=== PATIENT | male | born 1970 | race Caucasian/White ===

== ENCOUNTER → 2019-04-05 10:32 | Outpatient (BNVA) | payer MEDICARE, MEDICAID, SELFPAY | PROVIDERS: Family Provider Nurse Practitioner Family; PCP Nurse Practitioner Family; Referring Provider Internal Medicine Nephrology; Visit Provider Internal Medicine Nephrology | DX: N18.2 Chronic kidney disease, stage 2 (mild) (principal) | CPT/HCPCS: 80069; 82044 ==

== ENCOUNTER → 2019-05-19 15:00 | Outpatient (BNVA) | payer MEDICARE, MEDICAID, SELFPAY | PROVIDERS: Visit Provider Psychiatry & Neurology Psychiatry | DX: F20.89 Other schizophrenia (principal); F17.200 Nicotine dependence, unspecified, uncomplicated | CPT/HCPCS: 99213 ==

== ENCOUNTER → 2019-07-27 08:08 | Outpatient (BNVA) | payer MEDICARE, MEDICAID, SELFPAY | PROVIDERS: Visit Provider Psychiatry & Neurology Psychiatry | DX: F20.89 Other schizophrenia (principal); F17.200 Nicotine dependence, unspecified, uncomplicated | CPT/HCPCS: 99214 ==

== ENCOUNTER → 2019-08-17 08:16 | Outpatient (BNVA) | payer MEDICARE, MEDICAID, SELFPAY | PROVIDERS: Visit Provider Psychiatry & Neurology Psychiatry | DX: F20.89 Other schizophrenia (principal); F17.200 Nicotine dependence, unspecified, uncomplicated | CPT/HCPCS: 99213 ==

== ENCOUNTER → 2019-08-29 15:24 | Outpatient (BNVA) | payer MEDICARE, MEDICAID, SELFPAY | PROVIDERS: Visit Provider Family Medicine | DX: M25.512 Pain in left shoulder (principal) | CPT/HCPCS: 73030 ==

== ENCOUNTER → 2019-10-05 07:41 | Outpatient (BNVA) | payer MEDICARE, MEDICAID, SELFPAY | PROVIDERS: Visit Provider Psychiatry & Neurology Psychiatry | DX: F20.89 Other schizophrenia (principal); F17.200 Nicotine dependence, unspecified, uncomplicated | CPT/HCPCS: 99213 ==

== ENCOUNTER 2019-12-21 06:00 | Outpatient (RCR) | payer MEDICARE, MEDICAID, SELFPAY | END 2020-01-20 23:59 | disposition home or self-care (01) | LOC: TPT 06:00 | PROVIDERS: Referring Provider Orthopaedic Surgery; Visit Provider Orthopaedic Surgery | DX: M75.02 Adhesive capsulitis of left shoulder (principal) | CPT/HCPCS: 97110; 97140; 97161; G0283 ==

== ENCOUNTER 2020-01-19 23:07 | Inpatient (IN) | payer MEDICARE, MEDICAID, SELFPAY ==
[2020-01-19 23:29] VITALS: BP 91/58; PULSE 96; RESP 22; TEMP 36.4; O2SAT 98; BMI 53.3
--- NOTE | 2020-01-19 23:42 | XRR_ITS ---
PROCEDURE INFORMATION: Exam: XR Chest, 1 View Exam date and time: 01/20/2020 12:30 AM Age: 49 years old Clinical indication: Patient HX: Chills, fever, n/v; Additional info: Cough TECHNIQUE: Imaging protocol: XR of the chest Views: 1 view. COMPARISON: CR Chest 1 [place] [id number] 02/10/2013 2:26 PM FINDINGS: Lungs: There are some increased interstitial opacities present in the lower hemithoraces bilaterally, findings that raise some suspicion for bilateral basilar interstitial pneumonitis. Pleural space: Unremarkable. No pleural effusion. No pneumothorax. Heart/Mediastinum: Unremarkable. No cardiomegaly. Bones/joints: Unremarkable. XR/XR chest 1V portable [id number] IMPRESSION: Increased interstitial markings in the lower hemithoraces bilaterally raise suspicion for bilateral basilar interstitial pneumonitis.
--- NOTE | 2020-01-19 23:43 | ECG_ITS ---
[facility] Test Date: 2020-01-19 Pat Name: Rodríguez Toscano Department: Room: 270 Gender: Male Driver Medic: : 1970 Requested By: Terrie Hopson Order Number: [id number] Reading MD: HAYDEE RICO Measurements Intervals Pilot Rate: 92 P: 51 DC: 152 QRS: 215 QRSD: 165 T: 23 QT: 401 QTc: 496 Interpretive Statements SINUS RHYTHM RIGHT AXIS DEVIATION [QRS AXIS > 100] RIGHT BUNDLE BRANCH BLOCK [120+ ms QRS DURATION, UPRIGHT V1, 40+ ms S IN I/aVL/V4/V5/V6] No previous ECG available for comparison Electronically Signed On 01-20-2020 18:27:30 CDT by HAYDEE RICO [id number]
[2020-01-20] VITALS (17 sets, daily range): BP systolic 82–154; BP diastolic 41–85; PULSE 73–92; RESP 15–28; TEMP 36.6–37; O2SAT 88–100
[2020-01-20 00:01] LABS: ABG PCO2 43.1 mmHg (35-45); ABG PH Result 7.44 (7.35-7.45); Arterial Blood Gas Hematocrit 35.9 % (42-52); Base Excess ABG 4.3 mmol/L (-2.0-2.0); Blood Gas Allen Test Pos; Blood Gas Operator Identificat HARKR; Blood Gas Sample Site Radial, right; Blood Gas Sample Type Arterial; HCO3 ABG 29.1 mmol/L (22-26); Oxygen Device ROOM AIR; PO2 ABG 68.5 mmHg (80.0-100.0)
[2020-01-20] MEDS: ondansetron 2 mg/ML SDV 2 mL 4 MG IVP (00:18)
[2020-01-20] MEDS: morphine 4 mg/mL SDV 1 mL 5 MG IVP (00:20)
[2020-01-20] MEDS: sodium chloride 0.9% 1,000 ML 999 ML IV ×3 (00:25→05:03)
[2020-01-20 00:30] LABS: Basophils % 0.3 %; Eosinophils % 0.1 %; Hematocrit 37.4 % (42.0-52.0); Hemoglobin 11.7 g/dL (11.7-16.6); Lymphocytes # 1.7 10^3/uL (0.8-4.8); Lymphocytes % 13.9 %; Mean Corpuscular HGB Conc 31.3 g/dL (30.0-36.0); Mean Corpuscular Hemoglobin 27.9 pg (28.0-34.0); Mean Corpuscular Volume 89.3 fL (80-94); Mean Platelet Volume 9.8 fL (7.4-10.4); Monocytes # 0.9 10^3/uL (0.2-0.9); Neutrophils # 9.44 10^3/uL (1.8-7.7); Neutrophils % 77.6 %; Nucleated Red Blood Cells % 0 %; Platelet Count 279 10^3/cmm (130-400); Red Blood Count 4.19 10^6/uL (4.1-5.3); Red Cell Distribution Width 13.5 % (12.1-15.1); White Blood Count 12.2 10^3/uL (4.0-10.0)
[2020-01-20 00:36] LABS: Ketone (Acetest) Serum Negative (Negative)
[2020-01-20 00:50] LABS: Alanine Aminotransferase 17 U/L (0-41); Albumin Level 3.2 g/dL (3.5-5.2); Alkaline Phosphatase 75 IU/L (40-130); Anion Gap 16.2 (5-19); Aspartate Amino Transferase 15 U/L (0-40); Blood Urea Nitrogen 55 mg/dL (6-20); Carbon Dioxide 28 mmol/L (22-29); Chloride 88 mmol/L (98-107); Globulin 2.3 g/dL (1.3-4.6); Glomerular Filtration Rate 30.4 mL/min (90-130); Glucose 290 mg/dL (65-115); Lipase 17 U/L (13-60); Magnesium 2.1 mg/dL (1.7-2.3); Osmolality Calculated 292 mOsm/kg (285-295); Potassium 4.2 mmol/L (3.5-5.1); Sodium 128 mmol/L (136-145); Total Bilirubin 0.7 mg/dL (0.15-1.2); Total Protein 5.5 g/dL (6.6-8.7)
[2020-01-20 00:51] LABS: Influenza A by IFA Negative (Negative); Influenza B by IFA Negative (Negative); Lactic Sepsis W/Reflex 2.7 mmol/L (0.5-2.2); SARS Covid-2 Antigen Negative (Negative)
--- NOTE | 2020-01-20 00:51 | CTR_ITS ---
PROCEDURE INFORMATION: Exam: CT Abdomen And Pelvis Without Contrast Exam date and time: 01/20/2020 1:22 AM Age: 49 years old Clinical indication: Nausea and vomiting; Abdominal pain; Generalized TECHNIQUE: Imaging protocol: Computed tomography of the abdomen and pelvis without contrast. Radiation optimization: All CT scans at this facility use at least one of these dose optimization techniques: automated exposure control; mA and/or kV adjustment per patient size (includes targeted exams where dose is matched to clinical indication); or iterative reconstruction. COMPARISON: No relevant prior studies available. RADIATION DOSE METRICS: Total DLP (mGy-cm): 2051.17 FINDINGS: Liver: There is hypoattenuation of the hepatic parenchyma compatible with fatty infiltration. Gallbladder and bile ducts: Normal. No calcified stones. No ductal dilation. Pancreas: Normal. No ductal dilation. Spleen: Normal. No splenomegaly. Adrenal glands: Normal. No mass. Kidneys and ureters: Strandy opacities are seen in the perinephric fascia bilaterally likely representing chronic scarring. Stomach and bowel: There is some haziness seen adjacent to the distal stomach and proximal duodenum, findings that could represent mild inflammatory changes and gastroduodenitis. Appendix: No evidence of appendicitis. Intraperitoneal space: Unremarkable. No free air. No significant fluid collection. Vasculature: Unremarkable. No abdominal aortic aneurysm. Lymph nodes: Unremarkable. No enlarged lymph nodes. Urinary bladder: Unremarkable as visualized. Reproductive: Unremarkable as visualized. Bones/joints: Unremarkable. No acute fracture. Soft tissues: Unremarkable. CT/CT abdomen pelvis [facility] [id number] IMPRESSION: 1. Subtle haziness seen adjacent to distal stomach and proximal duodenum could represent mild inflammatory changes and gastroduodenitis. 2. Mild fatty infiltration of the liver Radiation Dose CTDIVOL = (mGy): DLP = 2051.17 (mGy-cm)
[2020-01-20 00:52] LABS: Troponin(5th) Baseline 30 ng/L (0-15)
--- NOTE | 2020-01-20 00:57 | ED_ITS ---
HPI - Abdominal Pain General: Chief Complaint: Abdominal Pain Stated Complaint: fever/chills/zp=568 Time Seen by Provider: 01/19/20 23:36 Source: patient and family Mode of arrival: ambulatory Limitations: no limitations History of Present Illness: HPI narrative: Rodríguez is a nice 49-year-old male who comes in with a 2-day history of fevers, chills, vomiting, diarrhea and cramping abdominal pain. Patient was concerned about a possible Covid virus infection and was recently tested but does not know those test results. He denies cough, shortness of breath, loss of sense of taste or loss of sense of smell. Patient denies any blood in his stools or blood in his vomit. Patient does state that he is lost his appetite. He describes abdominal pain as cramping. Has not been around anyone else this been sick to his knowledge. He otherwise denies any complaints or concerns. Associated Symptoms: Reports diarrhea, nausea and vomiting; Denies chills, coffee ground emesis, constipation, dysuria, fever(s), heartburn, hematochezia, hematuria, hematemesis, melena and syncope Review of Systems Const: Denies: fever(s), chills, body aches, fatigue, malaise or diaphoresis Eyes: Denies: change in vision, blurry vision, photophobia, eye discomfort, eye discharge, eye redness or yellow eyes ENMT: Denies: throat pain, odynophagia, hoarseness, swelling of lips/tongue, ear or mastoid pain, ear discharge, change in hearing or nasal discharge Card: Denies: chest pain, palpitations, irregular heart rhythm, edema, lightheadedness, syncope, pre-syncope, dyspnea on exertion or orthopnea Resp: Denies: dyspnea, productive cough, non-productive cough, wheezing, hemoptysis or chest congestion GI: Reports: abdominal pain, nausea, vomiting and diarrhea; Denies: hematemesis, coffee ground emesis, heartburn, constipation, hematochezia or melena : Denies: flank pain, dysuria, urinary frequency, urinary urgency or hematuria Musc: Denies: neck pain, back pain, extremity pain, extremity swelling, joint pain, joint swelling, joint redness, joint warmth or joint stiffness Skin/Breast: Denies: rash, pruritus, erythema, skin pain or skin tenderness Neuro: Denies: headache(s), numbness in extremities, weakness in extremities, sensory changes, lack of coordination, difficulty walking, dizziness, vertigo, confusion, Slurred speech present or seizure-like activity Miko/Lymph: Denies: easy bruising, easy bleeding, petechiae, purpura or enlarged lymph nodes All/Imm: Denies: urticaria, throat swelling, tongue swelling, facial swelling or acute wheezing PFSH ED PFSH: Medical History Adhesive capsulitis of left shoulder Chain smoker Hypertension Other schizophrenia Shoulder pain, left Type 2 diabetes mellitus Social History Smoking and tobacco status: current every day smoker smokeless tobacco Smokeless tobacco user: chewing tobacco Quit status (tobacco): not considering quitting Second hand smoke exposure: No Current gender identity: Male Physical Exam Const: COMMON NORMALS: no acute distress, patient oriented x3, no limitations and alert GENERAL APPEARANCE: cooperative HENMT: COMMON NORMALS: normocephalic, atraumatic, external ears normal, EAC's normal and Normal external nose present HEAD & SCALP: normal to inspection, normocephalic and atraumatic FACE & SINUS: normal facial exam and face symmetric NOSE: Normal external nose present and Normal nares present EXTERNAL EAR: Yes external ears normal EXTERNAL AUDITORY CANAL: EAC's normal MOUTH: Normal oral and palatal mucosa present, lip normal and tongue normal Eye: COMMON NORMALS: Equal, round and reactive pupils present and conjunctivae normal GENERAL EYE: appearance normal, both eyes and all related structures ALIGNMENT: Yes alignment normal PERIORBITAL: periorbital findings normal EYELID: eyelids normal CONJUNCTIVA: Yes conjunctivae normal SCLERA: sclerae normal PUPIL: Yes Equal, round and reactive pupils present Neck/C-Spine: COMMON NORMALS: full ROM, no lymphadenopathy, supple, no meningeal signs and no JVD GENERAL: Yes normal visual inspection and Yes trachea midline Chest: COMMONS NORMALS: normal inspection of the chest and normal palpation of entire chest wall Resp: COMMON NORMALS: normal respiratory effort, No retractions, No use of accessory muscles and clear to auscultation bilaterally EFFORT & INSPECTION: Yes able to speak in complete sentences and Yes symmetric chest movement AUSCULTATION: clear to auscultation bilaterally, no crackles, no rales, no rhonchi and no wheezes Cardio: COMMON NORMALS: no JVD, regular rate, regular rhythm, S1 normal heart sound present and S2 normal heart sound present RATE: regular rate RHYTHM: regular rhythm HEART SOUNDS: S1 normal heart sound present, S2 normal heart sound present, no click, no gallops, no murmurs and no rubs GI: COMMON NORMALS: Soft to palpation and No hepatosplenomegaly present PALPATION: Yes Soft to palpation, No Tenderness to palpation present (GI), No Guarding due to palpation present (GI), No Rigid due to palpation, Yes No hepatosplenomegaly present, No Hernia present, No Palpable mass present and No Pulsatile mass present : COMMON NORMALS: Yes no CVA tenderness BLADDER/KIDNEY EXAM: Yes no CVA tenderness Back/Pelvis: COMMON NORMALS: no CVA tenderness, thoracic and lumbar spine normal to inspection, no thoracic nor lumbar tenderness and thoraco-lumbar ROM normal Extremity: COMMON NORMALS: normal to inspection, full ROM, capillary refill normal, no joint enlargement, no clubbing, cyanosis or edema and no calf tenderness Neuro: COMMON NORMALS: patient oriented x3, CN's II-XII intact bilaterally, moves all extremities, no focal motor deficits and no sensory deficits noted SENSORIUM/ORIENTATION: Yes alert MENINGEAL SIGNS: Yes no meningeal signs SPEECH: speech normal Psych: COMMON NORMALS: mental status grossly normal, Normal thought process present, cooperative, normal affect, speech normal and activity/motor behavior normal SPEECH: Yes normal speech THOUGHT PROCESS: Normal thought process present Skin: COMMON NORMALS: no rashes or lesions noted, turgor normal, no jaundice, no petechiae and no mottling GENERAL SKIN EXAM: no rashes or lesions noted and turgor normal Course Vital Signs: Vital signs: Vital Signs Temperature 97.5 F L 01/19/20 23:29 Pulse Rate 92 01/20/20 01:00 Respiratory Rate 20 H 01/20/20 01:00 Blood Pressure 88/49 01/20/20 01:00 Pulse Oximetry 96 01/20/20 01:00 MDM - Abdominal Pain MDM Narrative: Medical decision making narrative: Rodríguez is a 49-year-old male comes in with a 2-day history of abdominal pain, fevers, chills and vomiting with diarrhea. CT scan shows evidence of gastroduodenitis. I believe he is cutting himself severely dehydrated from all the fluid loss. He has acute renal failure with a creatinine above 2. I will go ahead and admit him to the hospital. Case was endorsed to Dr. Avendaño he is agreeable to admission for further evaluation and care. Differential Diagnosis: Differential diagnosis abdominal pain: Likely abdomi nal pain, acute appendicitis, calculus of kidney, diverticulitis, gastroenteritis, pancreatitis and small bowel obstruction Lab Data: Attestation: I reviewed the patient's lab results. Labs: Lab Results 01/19/20 01/20/20 01/20/20 Range/Units 23:50 00:21 00:21 WBC 12.2 H (4.0-10.0) 10^3/ uL RBC 4.19 (4.1-5.3) 10^6/u L Hgb 11.7 (11.7-16.6) g/dL Hct 37.4 L (42.0-52.0) % MCV 89.3 (80-94) fL MCH 27.9 L (28.0-34.0) pg MCHC 31.3 (30.0-36.0) g/dL RDW 13.5 (12.1-15.1) % Plt Count 279 (130-400) 10^3/c mm MPV 9.8 (7.4-10.4) fL Neut % (Auto) 77.6 % Lymph % (Auto) 13.9 % Isabela % (Auto) 7.0 % Eos % (Auto) 0.1 % Baso % (Auto) 0.3 % Neut # (Auto) 9.44 H (1.8-7.7) 10^3/u L Lymph # (Auto) 1.7 (0.8-4.8) 10^3/u L Isabela # (Auto) 0.9 (0.2-0.9) 10^3/u L Eos # (Auto) 0.0 (0.0-0.8) 10^3/u L Baso # (Auto) 0.0 (0.0-0.1) 10^3/u L Nucleated RBC % (a uto) 0 % Nucleated RBCs # 0.0 /100WBC Specimen Type Arterial Sample Site Radial, right ABG pH 7.44 (7.35-7.45) ABG pCO2 43.1 (35-45) mmHg ABG pO2 68.5 L (80.0-100.0) mmH g ABG HCO3 29.1 H (22-26) mmol/L ABG Base Excess 4.3 H (-2.0-2.0) mmol/ L Vinicius Test Pos Hematocrit 35.9 L (42-52) % O2 Delivery Device Room air FiO2 21.0 % Mobile Paramedical Examiner ID Harkr Sodium 128 L (136-145) mmol/L Potassium 4.2 (3.5-5.1) mmol/L Chloride 88 L (98-107) mmol/L Carbon Dioxide 28 (22-29) mmol/L Anion Gap 16.2 (5-19) BUN 55 H (6-20) mg/dL Creatinine 2.3 H (0.7-1.2) mg/dL GFR Calculation 30.4 L (90-130) mL/min Glucose 290 H (65-115) mg/dL Calculated Osmolal ity 292 (285-295) mOsm/k g Lactic Acid (0.5-2.2) mmol/L Calcium 8.0 L (8.5-10.5) mg/dL Magnesium 2.1 (1.7-2.3) mg/dL Total Bilirubin 0.7 (0.15-1.2) mg/dL AST 15 (0-40) U/L ALT 17 (0-41) U/L Alkaline Phosphata se 75 (40-130) IU/L Troponin T Baselin e (0-15) ng/L Total Protein 5.5 L (6.6-8.7) g/dL Albumin 3.2 L (3.5-5.2) g/dL Globulin 2.3 (1.3-4.6) g/dL Lipase 17 (13-60) U/L Serum Ketones Negative (Negative) Influenza Type A A g (Negative) Influenza Type B A g (Negative) SARS-CoV-2 Ag (Rap id) (Negative) 01/20/20 01/20/20 01/20/20 Range/Units 00:21 00:21 00:21 WBC (4.0-10.0) 10^3/ uL RBC (4.1-5.3) 10^6/u L Hgb (11.7-16.6) g/dL Hct (42.0-52.0) % MCV (80-94) fL MCH (28.0-34.0) pg MCHC (30.0-36.0) g/dL RDW (12.1-15.1) % Plt Count (130-400) 10^3/c mm MPV (7.4-10.4) fL Neut % (Auto) % Lymph % (Auto) % Isabela % (Auto) % Eos % (Auto) % Baso % (Auto) % Neut # (Auto) (1.8-7.7) 10^3/u L Lymph # (Auto) (0.8-4.8) 10^3/u L Isabela # (Auto) (0.2-0.9) 10^3/u L Eos # (Auto) (0.0-0.8) 10^3/u L Baso # (Auto) (0.0-0.1) 10^3/u L Nucleated RBC % (a uto) % Nucleated RBCs # /100WBC Specimen Type Sample Site ABG pH (7.35-7.45) ABG pCO2 (35-45) mmHg ABG pO2 (80.0-100.0) mmH g ABG HCO3 (22-26) mmol/L ABG Base Excess (-2.0-2.0) mmol/ L Vinicius Test Hematocrit (42-52) % O2 Delivery Device FiO2 % Mobile Paramedical Examiner ID Sodium (136-145) mmol/L Potassium (3.5-5.1) mmol/L Chloride (98-107) mmol/L Carbon Dioxide (22-29) mmol/L Anion Gap (5-19) BUN (6-20) mg/dL Creatinine (0.7-1.2) mg/dL GFR Calculation (90-130) mL/min Glucose (65-115) mg/dL Calculated Osmolal ity (285-295) mOsm/k g Lactic Acid 2.7 H (0.5-2.2) mmol/L Calcium (8.5-10.5) mg/dL Magnesium (1.7-2.3) mg/dL Total Bilirubin (0.15-1.2) mg/dL AST (0-40) U/L ALT (0-41) U/L Alkaline Phosphata se (40-130) IU/L Troponin T Baselin e 30 H (0-15) ng/L Total Protein (6.6-8.7) g/dL Albumin (3.5-5.2) g/dL Globulin (1.3-4.6) g/dL Lipase (13-60) U/L Serum Ketones (Negative) Influenza Type A A g (Negative) Influenza Type B A g (Negative) SARS-CoV-2 Ag (Rap id) Negative (Negative) 01/20/20 Range/Units 00:21 WBC (4.0-10.0) 10^3/ uL RBC (4.1-5.3) 10^6/u L Hgb (11.7-16.6) g/dL Hct (42.0-52.0) % MCV (80-94) fL MCH (28.0-34.0) pg MCHC (30.0-36.0) g/dL RDW (12.1-15.1) % Plt Count (130-400) 10^3/c mm MPV (7.4-10.4) fL Neut % (Auto) % Lymph % (Auto) % Isabela % (Auto) % Eos % (Auto) % Baso % (Auto) % Neut # (Auto) (1.8-7.7) 10^3/u L Lymph # (Auto) (0.8-4.8) 10^3/u L Isabela # (Auto) (0.2-0.9) 10^3/u L Eos # (Auto) (0.0-0.8) 10^3/u L Baso # (Auto) (0.0-0.1) 10^3/u L Nucleated RBC % (a uto) % Nucleated RBCs # /100WBC Specimen Type Sample Site ABG pH (7.35-7.45) ABG pCO2 (35-45) mmHg ABG pO2 (80.0-100.0) mmH g ABG HCO3 (22-26) mmol/L ABG Base Excess (-2.0-2.0) mmol/ L Vinicius Test Hematocrit (42-52) % O2 Delivery Device FiO2 % Mobile Paramedical Examiner ID Sodium (136-145) mmol/L Potassium (3.5-5.1) mmol/L Chloride (98-107) mmol/L Carbon Dioxide (22-29) mmol/L Anion Gap (5-19) BUN (6-20) mg/dL Creatinine (0.7-1.2) mg/dL GFR Calculation (90-130) mL/min Glucose (65-115) mg/dL Calculated Osmolal ity (285-295) mOsm/k g Lactic Acid (0.5-2.2) mmol/L Calcium (8.5-10.5) mg/dL Magnesium (1.7-2.3) mg/dL Total Bilirubin (0.15-1.2) mg/dL AST (0-40) U/L ALT (0-41) U/L Alkaline Phosphata se (40-130) IU/L Troponin T Baselin e (0-15) ng/L Total Protein (6.6-8.7) g/dL Albumin (3.5-5.2) g/dL Globulin (1.3-4.6) g/dL Lipase (13-60) U/L Serum Ketones (Negative) Influenza Type A A g Negative (Negative) Influenza Type B A g Negative (Negative) SARS-CoV-2 Ag (Rap id) (Negative) Imaging Data ^: CXR: Attestation: I personally reviewed and interpreted this imaging study as follows: My impression: No acute cardiopulmonary findings. CT Abd/Pel: Radiologist's impression: [place] [address] CT Scan Report Signed Patient: Rodríguez Toscano Unit #: [id number] : 1970 Age/Sex: 49 / M ADM Date: 01/19/20 Loc: ER Room/Bed: Attending Dr: Ordering Provider/Ordering MD: Terrie Rodriguez DO Date of Service: 01/20/20 Procedure(s): CT abdomen pelvis con [id number] Accession Number(s): [id number] Report Number: [id number] PROCEDURE INFORMATION: Exam: CT Abdomen And Pelvis Without Contrast Exam date and time: 01/20/2020 1:22 AM Age: 49 years old Clinical indication: Nausea and vomiting; Abdominal pain; Generalized TECHNIQUE: Imaging protocol: Computed tomography of the abdomen and pelvis without contrast. Radiation optimization: All CT scans at this facility use at least one of these dose optimization techniques: automated exposure control; mA and/or kV adjustment per patient size (includes targeted exams where dose is matched to clinical indication); or iterative reconstruction. COMPARISON: No relevant prior studies available. RADIATION DOSE METRICS: Total DLP (mGy-cm): 2052.17 FINDINGS: Liver: There is hypoattenuation of the hepatic parenchyma compatible with fatty infiltration. Gallbladder and bile ducts: Normal. No calcified stones. No ductal dilation. Pancreas: Normal. No ductal dilation. Spleen: Normal. No splenomegaly. Adrenal glands: Normal. No mass. Kidneys and ureters: Strandy opacities are seen in the perinephric fascia bilaterally likely representing chronic scarring. Stomach and bowel: There is some haziness seen adjacent to the distal stomach and proximal duodenum, findings that could represent mild inflammatory changes and gastroduodenitis. Appendix: No evidence of appendicitis. Intraperitoneal space: Unremarkable. No free air. No significant fluid collection. Vasculature: Unremarkable. No abdominal aortic aneurysm. Lymph nodes: Unremarkable. No enlarged lymph nodes. Urinary bladder: Unremarkable as visualized. Reproductive: Unremarkable as visualized. Bones/joints: Unremarkable. No acute fracture. Soft tissues: Unremarkable. CT/CT abdomen pelvis wo con [id number] IMPRESSION: 1. Subtle haziness seen adjacent to distal stomach and proximal duodenum could represent mild inflammatory changes and gastroduodenitis. 2. Mild fatty infiltration of the liver Radiation Dose CTDIVOL = (mGy): DLP = 2052.17 (mGy-cm) Dictated By: Darron Pérez MD Signed By: Darron Pérez MD Signed Date/Time: 01/20/20144 DD/ 2 EKG Data ^: EKG 1: Attestation: I personally reviewed and interpreted this EKG as follows: EKG interpretation date: 01/20/20 EKG interpretation time: 23:59 Interpretation: Normal sinus rhythm at 92 beats a minute, right bundle branch block, nonspecific ST-T wave changes. EKG 2: Attestation: I personally reviewed and interpreted this EKG as follows: EKG interpretation date: 01/20/20 EKG interpretation time: 01:55 Interpretation: Normal sinus rhythm 83 beats a minute, right bundle branch block, left axis deviation, no other acute ST-T wave changes. Discharge Plan Discharge Prescriptions: No Action insulin lispro 100 unit/mL insulin pen 110 unit SUBCUT .ac RF: 0 insulin lispro 100 unit/mL insulin pen 140 unit SUBCUT TID RF: 0 famotidine 20 mg tablet 20 mg PO BID Qty: 60 RF: 2 alprazolam [Xanax] 1 mg tablet 1 mg PO TID Qty: 60 RF: 3 Latuda 120 mg tablet 120 mg PO QDAY Qty: 30 RF: 3 sertraline 100 mg tablet 100 mg PO DAILY Qty: 30 RF: 5 baclofen 10 mg tablet 10 mg PO DAILY Qty: 30 RF: 1 celecoxib 200 mg capsule 200 mg PO BID Qty: 30 RF: 2 lisinopril 10 mg tablet 10 mg PO DAILY RF: 0 lorazepam [Ativan] 1 mg tablet 1 mg PO DAILY PRN (Reason: anxiety) Qty: 1 RF: 0 Coding Level of Care Code ED Rn Infusion for Daisy Fwd Exam Comprehensive
[2020-01-20] MEDS: piperacillin-tazobactam 4.5 GM in sodium chloride 0.9% (plus) 50 ML IV (01:10)
--- NOTE | 2020-01-20 01:43 | ECG_ITS ---
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
--- NOTE | 2020-01-20 01:59 | PC.NURSE ---
EKG done at 0155 and shown to ER doctor
--- NOTE | 2020-01-20 02:11 | PM.HP ---
Providers/Chief Complaint Primary Care Provider: [facility] Chief Complaint: fever/chills/ze=596 History of Present Illness 49-year-old with a past medical history significant for chronic left shoulder pain due to adhesive capsulitis, schizophrenia, chronic tobacco abuse, morbid obesity, and diabetes mellitus who presented to the hospital with nausea, vomiting and abdominal pain. This was associated with intermittent episodes of fever at home. he was seen on 01/19/2020 for suspected COVID-19 infection after which PCR was sent however results pending. Denies any chest pain or shortness of breath. Did note decreased appetite. Upon arrival to emergency room his initial vitals showed a blood pressure of 95/52. Respiratory rate of 22, heart rate of 79, and temperature 97.5?. Laboratory workup showed a WBC of 12.2, hemoglobin of 11.7, hematocrit 37.4 and a platelet count of 279. sodium 128, potassium 4.2, chloride 88, bicarb 28, BUN 55 and creatinine of 2.3. Glucose was elevated at 290. lactic acid was elevated 2.7. Last known creatinine of 0.9 in March of 2019. Magnesium 2.1. Troponin T was 30. arterial blood gases showed a pH of 7.44, pCO2 43.1, bicarb of 29.1 on room air. Serum ketones was negative. CT abdomen pelvis showed subtle haziness adjacent to the distal stomach and proximal duodenum suspicious for mild inflammatory changes and gastroduodenitis. Also noted to have mild fatty infiltration of liver. Chest x-ray showed increased interstitial markings in the lower hemithorax bilaterally suspicious for bilateral basilar interstitial pneumonitis. Influenza A/B and COVID-19 rapid antigen were all negative. PCR swab is still pending. In ER patient was given NS 1L bolus, vancomycin 2g IV x 1 and Zosyn 4.5g IV x 1. Review of Systems General: Reports: 10 or more systems reviewed and unremarkable except in HPI and below Medications/Allergies Home Medications Medication Instructions Recorded Confirmed Last Taken Type famotidine 20 mg tablet 20 mg PO BID #60 tab 06/21/19 01/19/20 Unknown Rx insulin lispro 100 unit/mL 110 unit SUBCUT .ac ml 06/21/19 01/19/20 Unknown History subcutaneous pen insulin lispro 100 unit/mL 140 unit SUBCUT TID ml 06/21/19 01/19/20 Unknown History subcutaneous pen baclofen 10 mg tablet 10 mg PO DAILY #30 tab 08/29/19 01/19/20 Unknown Rx celecoxib 200 mg capsule 200 mg PO BID #30 cap 08/29/19 01/19/20 Unknown Rx lisinopril 10 mg tablet 10 mg PO DAILY 09/05/19 01/19/20 Unknown History alprazolam 1 mg tablet 1 mg PO TID #60 tab 10/05/19 01/19/20 Unknown Rx lurasidone 120 mg tablet 120 mg PO QDAY #30 tab 10/05/19 01/19/20 Unknown Rx sertraline 100 mg tablet 100 mg PO DAILY #30 tab 10/05/19 01/19/20 Unknown Rx lorazepam 1 mg tablet 1 mg PO DAILY PRN #1 tab 11/08/19 01/19/20 Unknown Rx Allergies Allergy/AdvReac Type Severity Reaction Status Date / Time No Known Allergies Allergy Verified 01/19/20 10:56 PFSH Acute PFSH: Medical History Adhesive capsulitis of left shoulder Chain smoker Hypertension Other schizophrenia Shoulder pain, left Type 2 diabetes mellitus Social History Smoking and tobacco status: current every day smoker smokeless tobacco Smokeless tobacco user: chewing tobacco Quit status (tobacco): not considering quitting Second hand smoke exposure: No Current gender identity: Male Vitals/I&O/Wt Last Vital Signs Temp 97.5 F L 01/19/20 23:29 Pulse 92 01/20/20 01:00 Resp 20 H 01/20/20 01:00 BP 88/49 01/20/20 01:00 Pulse Ox 96 01/20/20 01:00 01/19/20 01/19/20 01/20/20 14:59 22:59 06:59 Intake Total 1050 / 1050 Balance 1050 / 1050 Weight last 48 hrs Weight 178.262 kg Physical Exam Narrative: EXAM NARRATIVE: General-alert awake oriented HEENT- grossly unremarkable CVS- regular rate rhythm Chest- symmetric expansion, difficult to auscultate due to body habitus Abdomen- -non-tender non-distended Extremities-mild bilateral LE edema Urinary Catheter Management^: Hadley: Cath Placed During This Visit: yes Reason for Continuing Indwelling Catheter: Acute Urinary Retention or Obstruction Urinary Catheter Date of Insertion: 01/20/20 Urinary Catheter Time of Insertion: 01:57 Data : 01/20/20 00:21 01/20/20 00:21 Micro: Microbiology 01/20/20 00:21 Blood Culture - Preliminary Blood SPECIMEN COLLECTED A&P Assessment and plan (1) Nausea & vomiting: Status: Acute (2) Acute kidney injury: Status: Acute (3) Lactic acidosis: Status: Acute Sepsis with hypotension possibly due to bibasilar pneumonia vs Below - Possible aspiration pneumonitis vs viral - Continue IV zosyn - Follow up on blood culture - COVID-19 PCR sent on 01/18 - pending - COVID 19 ag negative in ER - S/p 2L bolus of IVF - Respiratory status stable N/V/Abdominal pain due to acute gastroduodenitis - Possible underlying undiagnosed gasteroparesis - Started on CLD in am - Continue IVF at 125 cc/hr - Lactic acid 2.7 - reflex pending - Will continue zosyn 3.375g IV q8hr ( pharmacy to renally dose ) which was ordered in ER - Follow up on Blood culture x 2 - Can check pro-calcitonin in am - Will hold on continuing vancomycin - Zofran 4 mg IV q6hr PRN for nausea - CO - Precautions until reported. Acute renal failure - Creatinine 2.3 - Likely pre-renal - Repeat BMP in AM - Renaly dose medication - Hadley placed in ER - can likely discontinue after 24hr Hypovolemic Hyponatremia - Sodium 128 - Repeat in AM - On IVF at 125cc/hr - Additional NS bolus given Diabetes Mellitus - Sliding scale insulin - Holding oral home - Check a1c in AM GI prophylaxis - Pepcid 20 mg IV b.i.d. DVT prophylaxis - Heparin 5000 units q.8 hours Additional Medical problems Schizophrenia Morbid Obesity Attestations Medical Necessity Statement*: Patient is admitted to the hospital with sepsis, acute renal insufficiency, possible pneumonia versus gastroduodenitis will likely require over 2 midnight stay in hospital for evaluation and treatment. 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
[2020-01-20 02:13] LABS: Reflex Lactate Order REFLEX LACTIC ORDERD
[2020-01-20 04:46] LABS: Lactic Acid level (Lactate) 1.6 mmol/L (0.5-2.2)
[2020-01-20] MEDS: sodium chloride 0.9% 1,000 ML 75 ML IV (05:03)
[2020-01-20] MEDS: heparin 5,000 unit/mL INJ 1 mL 5000 UNIT SUBCUT ×3 (05:04→19:43)
[2020-01-20] MEDS: famotidine 20 mg/2 mL INJ IVP ×2 (05:04→14:55)
[2020-01-20 05:25] LABS: Glucose Point of Care 79 mg/dL (70-110)
[2020-01-20 05:25] LABS: Glucose Point of Care 75 mg/dL (70-110)
--- NOTE | 2020-01-20 05:43 | ECG_ITS ---
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1970 Requested By: Terrie Hopson Order Number: [id number] García MD: HAYDEE RICO Measurements Intervals [place] Rate: 75 P: 38 LA: 166 QRS: 237 QRSD: 174 T: 7 QT: 437 QTc: 488 Interpretive Statements SINUS RHYTHM INDETERMINATE AXIS RIGHT BUNDLE BRANCH BLOCK [120+ ms QRS DURATION, UPRIGHT V1, 40+ ms S IN I/aVL/V4/V5/V6] Compared to ECG 01/20/2020 01:55:02 Indeterminate axis now present Right-axis deviation no longer present Electronically Signed On 01-20-2020 18:31:58 CDT by HAYDEE RICO [id number] f
[2020-01-20 06:46] LABS: Glucose Point of Care 53 mg/dL (70-110)
[2020-01-20 06:46] LABS: Glucose Point of Care 45 mg/dL (70-110)
--- NOTE | 2020-01-20 07:22 | PC.NURSE ---
Notified Dr. Avendaño of patient's hypoglycemia, minimal improvement with PO intervention. Orders received for D50 IVP.
[2020-01-20] MEDS: dextrose 50% syringe 50 mL IVP ×2 (07:47→11:09)
[2020-01-20 08:06] LABS: Troponin T (5th) Once 31 ng/L (0-15)
[2020-01-20] MEDS: piperacillin-tazobactam 3.375 GM in sodium chloride 0.9% (plus) 50 ML IV ×2 (09:07→17:12)
[2020-01-20 09:50] LABS: Glucose Point of Care 127 mg/dL (70-110)
[2020-01-20 09:50] LABS: Glucose Point of Care 53 mg/dL (70-110)
[2020-01-20 09:50] LABS: Glucose Point of Care 60 mg/dL (70-110)
[2020-01-20 09:50] LABS: Glucose Point of Care 54 mg/dL (70-110)
--- NOTE | 2020-01-20 10:33 | PM.PN ---
Subjective Subjective: Interval history: Rodríguez reports he feels quite a bit better. No nausea or vomiting. No diarrhea currently. History and physical reviewed Medications: Reviewed: Yes Vitals/I&O/Wt Last Vital Signs Temp 98.1 F 01/20/20 08:00 Pulse 73 01/20/20 08:00 Resp 20 H 01/20/20 08:00 BP 100/61 01/20/20 08:00 Pulse Ox 94 01/20/20 08:00 01/19/20 01/20/20 01/20/20 22:59 06:59 14:59 Intake Total 2049 360 / 360 Balance 2049 360 / 360 Weight last 48 hrs Weight 191.416 kg Weight 178.262 kg Physical Exam Narrative: EXAM NARRATIVE: General exam is no apparent distress Cardiovascular regular rate and rhythm without murmur Lungs clear Abdomen is soft obese nontender with positive bowel sounds Extremities no cyanosis clubbing or edema Urinary Catheter Management^: Hadley: Cath Placed During This Visit: yes Reason for Continuing Indwelling Catheter: Accurate Measurement of Urinary Output in Critically Ill Patients Urinary Catheter Date of Insertion: 01/20/20 Urinary Catheter Time of Insertion: 01:57 Data : 01/20/20 00:21 01/20/20 00:21 Micro: Microbiology 01/20/20 04:11 Blood Culture - Preliminary Blood SPECIMEN COLLECTED 01/20/20 00:21 Blood Culture - Preliminary Blood SPECIMEN COLLECTED A&P Assessment and plan (1) Nausea & vomiting: This appears to have resolved Increase diet Monitor for any recurrence of symptoms Placed on antibiotics on admission. Agree with holding vancomycin. Zosyn can continue. Await urinalysis. Status: Acute (2) Acute kidney injury: Continue hydration Monitor urine output Check BMP around 1400. If improving, consider discontinuation of Hadley. No current evidence of urinary retention noted on CT Avoid anti-inflammatories Hold ZOILA inhibitor Status: Acute (3) Chain smoker: Counseling Status: Acute (4) Other schizophrenia: Status: Acute Additional A&P Information Hyponatremia. Repeat BMP this afternoon. Not all secondary to hyperglycemia. Type 2 diabetes. Sliding scale insulin Concern of Covid. Awaiting PCR Full code Heparin for DVT prophylaxis Attestations Medical Necessity Statement*: Needs continued hospital stay for IV hydration secondary to renal failure. 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
--- NOTE | 2020-01-20 11:15 | USR_ITS ---
PROCEDURE INFORMATION: Exam: US Duplex Lower Extremity Veins, Bilateral Exam date and time: 01/20/2020 11:16 AM Age: 49 years old Clinical indication: Edema, localized; Lower extremity, bilateral; Additional info: Edema low BP TECHNIQUE: Imaging protocol: Real-time duplex ultrasound of the extremities with 2-D mccarthy scale, color Doppler flow and spectral waveform analysis with image documentation. Complete exam focused on the bilateral lower extremity veins. COMPARISON: No relevant prior studies available. FINDINGS: Right deep veins: Unremarkable. The common femoral, femoral, proximal profunda femoral and popliteal veins are patent without thrombus. Normal Doppler waveforms. Normal compressibility and/or augmentation response. Right superficial veins: Saphenofemoral junction is patent without thrombus. Left deep veins: Unremarkable. The common femoral, femoral, proximal profunda femoral and popliteal veins are patent without thrombus. Normal Doppler waveforms. Normal compressibility and/or augmentation response. Left superficial veins: Saphenofemoral junction is patent without thrombus. Soft tissues: Unremarkable. Other findings: Technically difficult study secondary to the large body habitus of the patient. US/[place] [id number] IMPRESSION: No evidence for deep venous thrombosis.Technically difficult study secondary to the large body habitus of the patient.
[2020-01-20 11:36] LABS: Glucose Point of Care 44 mg/dL (70-110)
[2020-01-20 12:33] LABS: Urine Appearance Hazy (CLEAR); Urine Color Yellow (Yellow); pH Urine 5 (5-7)
[2020-01-20 12:34] LABS: Add Urine Culture? No; Add Urine Microscopic? YES; Bacteria Urine TRACE /hpf; Bilirubin Urine 1+ (Negative); Blood Urine 2+ (Negative); Glucose Urine UA Norm (Normal); Ketones Urine Negative (Negative); Leukocyte Esterase Urine 2+ (Negative); Nitrate Urine Negative (Negative); Protein Urine Neg (Negative); RBC Urine 0-4 /hpf (0-2); Squamous Epithelial Cell Urine 0-4 /hpf (0-5); Sulfosalicylic Acid Urine Negative (Negative); Urobilinogen Urine Norm (Negative)
[2020-01-20] MEDS: linezolid premix 600 MG/300 ML PREMIX 300 MG IV ×2 (12:46→23:33)
[2020-01-20] MEDS: dextrose 5%-sod chloride 0.45% 1,000 ML 75 ML IV (12:46)
[2020-01-20 16:51] LABS: Glucose Point of Care 87 mg/dL (70-110)
[2020-01-20 16:51] LABS: Glucose Point of Care 77 mg/dL (70-110)
[2020-01-20 16:53] LABS: Glucose Point of Care 60 mg/dL (70-110)
[2020-01-20 17:37] LABS: Blood Urea Nitrogen 50 mg/dL (6-20); Calcium 8.1 mg/dL (8.5-10.5); Carbon Dioxide 30 mmol/L (22-29); Chloride 96 mmol/L (98-107); Glomerular Filtration Rate 43.1 mL/min (90-130); Glucose 71 mg/dL (65-115); Osmolality Calculated 292 mOsm/kg (285-295); Sodium 135 mmol/L (136-145)
[2020-01-20] MEDS: lurasidone 80 mg Tablet 120 MG PO (17:58)
[2020-01-20 18:42] LABS: Glucose Point of Care 120 mg/dL (70-110)
[2020-01-20 20:34] LABS: Glucose Point of Care 92 mg/dL (70-110)
[2020-01-20] MEDS: acetaminophen 325 mg Tablet 650 MG PO (21:20)
[2020-01-21] VITALS: BP 143/62; PULSE 84; RESP 24; TEMP 36.6; O2SAT 97
--- NOTE | 2020-01-21 01:04 | PC.NURSE ---
Patient's SpO2 will be in the 70's while he is sleeping, once he wakes up, it will increase to 94%. Would recommend the patient perform a sleep study to rule out CHERRI.
[2020-01-21] MEDS: piperacillin-tazobactam 3.375 GM in sodium chloride 0.9% (plus) 50 ML IV ×2 (01:05→08:29)
[2020-01-21] MEDS: dextrose 5%-sod chloride 0.45% 1,000 ML 75 ML IV (01:12)
[2020-01-21 02:19] LABS: Glucose Point of Care 114 mg/dL (70-110)
[2020-01-21] MEDS: heparin 5,000 unit/mL INJ 1 mL 5000 UNIT SUBCUT ×2 (03:26→12:02)
[2020-01-21] MEDS: famotidine 20 mg/2 mL INJ IVP (03:26)
[2020-01-21] MEDS: acetaminophen 325 mg Tablet 650 MG PO (03:40)
[2020-01-21 04:00] VITALS: BP 122/71; PULSE 86; RESP 20; TEMP 36.6; O2SAT 93
[2020-01-21 06:38] LABS: Glucose Point of Care 130 mg/dL (70-110)
--- NOTE | 2020-01-21 07:08 | NUR.SHIFT ---
Patient has had some complaints of pain, with Tylenol, those complaints appeared to be silenced. Patient had slept most of the night.
[2020-01-21 08:00] VITALS: BP 153/78; PULSE 86; RESP 18; TEMP 36.6; O2SAT 97
[2020-01-21 08:07] LABS: Basophils # 0.1 10^3/uL (0.0-0.1); Basophils % 0.7 %; Eosinophils # 0.1 10^3/uL (0.0-0.8); Eosinophils % 1.3 %; Hematocrit 32.4 % (42.0-52.0); Hemoglobin 9.7 g/dL (11.7-16.6); Lymphocytes # 2.9 10^3/uL (0.8-4.8); Lymphocytes % 27.7 %; Mean Corpuscular HGB Conc 29.9 g/dL (30.0-36.0); Mean Corpuscular Hemoglobin 28.3 pg (28.0-34.0); Mean Corpuscular Volume 94.5 fL (80-94); Mean Platelet Volume 9.7 fL (7.4-10.4); Monocytes # 0.8 10^3/uL (0.2-0.9); Monocytes % 7.6 %; Neutrophils # 6.26 10^3/uL (1.8-7.7); Nucleated Red Blood Cells % 0 %; Platelet Count 230 10^3/cmm (130-400); Red Blood Count 3.43 10^6/uL (4.1-5.3); Red Cell Distribution Width 13.6 % (12.1-15.1); White Blood Count 10.4 10^3/uL (4.0-10.0)
[2020-01-21 08:23] LABS: Anion Gap 13.5 (5-19); Blood Urea Nitrogen 33 mg/dL (6-20); Calcium 8.1 mg/dL (8.5-10.5); Carbon Dioxide 26 mmol/L (22-29); Chloride 98 mmol/L (98-107); Glomerular Filtration Rate 58.7 mL/min (90-130); Glucose 140 mg/dL (65-115); Magnesium 2.2 mg/dL (1.7-2.3); Osmolality Calculated 286 mOsm/kg (285-295); Potassium 4.5 mmol/L (3.5-5.1); Sodium 133 mmol/L (136-145)
[2020-01-21 08:38] LABS: Glucose Point of Care 126 mg/dL (70-110)
[2020-01-21 10:57] LABS: Glucose Point of Care 208 mg/dL (70-110)
[2020-01-21] MEDS: HYDROcodone-acetaminophen 5-325 mg Tablet 1 TAB PO (11:00)
[2020-01-21] MEDS: linezolid premix 600 MG/300 ML PREMIX 300 MG IV (11:46)
[2020-01-21 12:00] VITALS: BP 161/69; PULSE 81; RESP 20; TEMP 36.8; O2SAT 92
--- NOTE | 2020-01-21 12:25 | PM.DCS ---
Discharge Providers Date of Admission: 01/20/20 03:44 Date of Discharge: January 21, 2020 Attending Provider at Admission: Sosa Avendaño Attending Provider at Discharge: Olayinka Weaver MD Primary Care Provider: [facility] Diagnoses at Discharge Discharge Diagnosis (1) Nausea & vomiting: Status: Acute Permanent problem details: Resolved (2) Acute kidney injury: Status: Acute Permanent problem details: Resolved (3) Chain smoker: Status: Acute (4) Other schizophrenia: Status: Acute Reason for Visit Reason for Visit: fever/chills/fe=935 Hospital Course Hospital Course: Rodríguez is a 49-year-old white male who presented to the emergency department with complaints of elevated glucose at home. He was found to be hypotensive. Blood sugar was actually low in the emergency department but he had taken approximately 200 units of insulin prior to coming in for his sugar over 400. Acute renal failure was discovered. The day after admission I noted that his left leg had some erythema consistent with cellulitis which he reported had been going on 2 days. Venous duplex was negative. This was likely cellulitis. He received Zosyn, as well as linezolid. Hydration was given for renal failure, and lisinopril was held. With hydration his renal function improved to a creatinine of 1.3. Erythema on his left leg improved drastically to where this was only minimal at time of discharge. He was afebrile at time of discharge and cultures were negative. Secondary to his hemoglobin drifting down he will also be discharged on Protonix. Hemoglobin was 9.7 on discharge. He had had no overt bleeding. He will discharge home today. Secondary to low blood sugars noted on arrival he will initiate half of his normal insulin dosing and increase this gradually if blood sugar is greater than 200 to his home dosing regimen as his renal function has returned close to normal. Norvasc was substituted for lisinopril on discharge as blood pressure had gone back up to 160/70. Physical Exam Narrative: EXAM NARRATIVE: General exam no apparent distress Cardiovascular regular in rhythm without murmur Lungs clear Abdomen is soft with positive bowel sounds Extremities no cyanosis clubbing. Left lower extremity with some edema. Erythema is now more ruborous and significantly resolved. Urinary Catheter Management^: Hadley: Cath Placed During This Visit: yes, but has since been removed by the nurse Reason for Continuing Indwelling Catheter: Accurate Measurement of Urinary Output in Critically Ill Patients Urinary Catheter Date of Insertion: 01/20/20 Urinary Catheter Time of Insertion: 01:57 Date Urinary Catheter Removed: 01/20/20 Time Urinary Catheter Discontinued: 18:15 Discharge Data Data Completed and Pending: Completed Studies During Hospitalization Category Date Time Status CT abdomen pelvis wo con [id number] Stat Cat Scan 01/20/20 00:51 Completed XR chest 1V latisha ble [id number] Stat Exams 01/19/20 23:42 [place] [id number] Routin e Ultrasound 01/20/20 11:15 Completed Pending at discharge Category Date Time Status Blood Culture Sta t Lab 01/19/20 23:42 Results [facility] SARS-CoV-2 RNA Routine Lab 01/20/20 09:42 Received Urine Culture Rou mei Lab 01/20/20 12:04 Received Labs from last 24 hours 01/21/20 01/21/20 01/21/20 10:50 08:10 07:57 WBC RBC Hgb Hct MCV MCH MCHC RDW Plt Count MPV Neut % (Auto) Lymph % (Auto) [place] % (Auto) Eos % (Auto) Baso % (Auto) Neut # (Auto) Lymph # (Auto) [place] # (Auto) Eos # (Auto) Baso # (Auto) Nucleated RBC % (a uto) Nucleated RBCs # Sodium 133 L Potassium 4.5 Chloride 98 Carbon Dioxide 26 Anion Gap 13.5 BUN 33 H Creatinine 1.3 H GFR Calculation 58.7 L Glucose 140 H POC Glucose 208 126 Calculated Osmolal ity 286 Calcium 8.1 L Magnesium 2.2 01/21/20 01/21/20 01/21/20 07:57 06:29 02:15 WBC 10.4 H RBC 3.43 L Hgb 9.7 L Hct 32.4 L MCV 94.5 H MCH 28.3 MCHC 29.9 L RDW 13.6 Plt Count 230 MPV 9.7 Neut % (Auto) 60.0 Lymph % (Auto) 27.7 [place] % (Auto) 7.6 Eos % (Auto) 1.3 Baso % (Auto) 0.7 Neut # (Auto) 6.26 Lymph # (Auto) 2.9 [place] # (Auto) 0.8 Eos # (Auto) 0.1 Baso # (Auto) 0.1 Nucleated RBC % (a uto) 0 Nucleated RBCs # 0.0 Sodium Potassium Chloride Carbon Dioxide Anion Gap BUN Creatinine GFR Calculation Glucose POC Glucose 130 114 Calculated Osmolal ity Calcium Magnesium 01/20/20 01/20/20 01/20/20 20:22 18:34 17:12 WBC RBC Hgb Hct MCV MCH MCHC RDW Plt Count MPV Neut % (Auto) Lymph % (Auto) [place] % (Auto) Eos % (Auto) Baso % (Auto) Neut # (Auto) Lymph # (Auto) [place] # (Auto) Eos # (Auto) Baso # (Auto) Nucleated RBC % (a uto) Nucleated RBCs # Sodium 135 L Potassium 4.0 Chloride 96 L Carbon Dioxide 30 H Anion Gap 13.0 BUN 50 H Creatinine 1.7 H GFR Calculation 43.1 L Glucose 71 POC Glucose 92 120 Calculated Osmolal ity 292 Calcium 8.1 L Magnesium 01/20/20 01/20/20 01/20/20 16:28 14:06 11:50 WBC RBC Hgb Hct MCV MCH MCHC RDW Plt Count MPV Neut % (Auto) Lymph % (Auto) [place] % (Auto) Eos % (Auto) Baso % (Auto) Neut # (Auto) Lymph # (Auto) [place] # (Auto) Eos # (Auto) Baso # (Auto) Nucleated RBC % (a uto) Nucleated RBCs # Sodium Potassium Chloride Carbon Dioxide Anion Gap BUN Creatinine GFR Calculation Glucose POC Glucose 60 87 77 Calculated Osmolal ity Calcium Magnesium Vitals: Last Vital Signs Temp 98.2 F 01/21/20 12:00 Pulse 81 01/21/20 12:00 Resp 20 H 01/21/20 12:00 BP 161/69 01/21/20 12:00 Pulse Ox 92 01/21/20 12:00 Discharge Plan Discharge Patient Disposition: Home Condition: Stable Prescriptions: New amlodipine [Norvasc] 5 mg tablet 5 mg PO DAILY Qty: 30 RF: 0 amoxicillin-pot clavulanate [Augmentin] 875-125 mg tablet 1 tab PO BID Qty: 14 RF: 0 pantoprazole [Protonix] 40 mg tablet,delayed release (DR/EC) 40 mg PO DAILY Qty: 30 RF: 0 Continued alprazolam [Xanax] 1 mg tablet 1 mg PO TID Qty: 60 RF: 3 sertraline 100 mg tablet 100 mg PO DAILY Qty: 30 RF: 5 Tylenol Extra Strength 500 mg Tablet 500 - 1,000 mg PO PRN RF: 0 Humulin R U-500 (Conc) Kwikpen 500 unit/mL (3 mL) insulin pen See Rx Instructions .ROUTE .COMPLEX RF: 0 Latuda 120 mg tablet 120 mg PO DAILY RF: 0 Discontinued lisinopril 10 mg tablet 10 mg PO BID RF: 0 famotidine 20 mg tablet 20 mg PO BID PRN (Reason: unknown) RF: 0 Discharge Orders: Discharge Order (Routine); Ordered 01/21/20 Ordered By: Olayinka Weaver Referrals: [facility], [Primary Care Provider] - 4-7 days Discharge Diet: Diabetic Discharge Activity: Increase activity as tolerated Activity Restrictions/Additional Instructions: Please start with 50 units before meals of your insulin. This is one half of your usual dose. If blood sugar is greater than 200 consistently increase this to 75 units before meals. If blood sugar greater than 200 consistently increase back to your home amount. 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
[2020-01-21 13:16] VITALS: BP 161/69; PULSE 81; RESP 20; TEMP 36.8; O2SAT 92
--- NOTE | 2020-01-21 14:03 | PC.NURSE ---
IV taken out and intact. discharge instructions explained and questions answered.
[2020-01-21 15:23] VITALS: BP 161/69; PULSE 81; RESP 20; TEMP 36.8; O2SAT 92
[2020-01-21 16:42] LABS: Quest SARS-CoV-2 RNA NOT DETECTED (NOT DETECTED)
--- NOTE | 2020-01-22 17:20 | PC.RESP ---
Smoking Cessation information sent to patient.
== END 2020-01-21 15:24 | disposition home or self-care (01) | DRG 872 ==
LOC: ER 23:36 → MEDSURG 01-20 07:19
PROVIDERS: Emergency Medicine; Admitting Provider Hospitalist; Visit Provider Internal Medicine
DX: A41.9 Sepsis, unspecified organism (principal); N17.9 Acute kidney failure, unspecified; F20.89 Other schizophrenia; L03.116 Cellulitis of left lower limb; Z68.43 Body mass index [BMI] 50.0-59.9, adult; E87.2 Acidosis; E87.1 Hypo-osmolality and hyponatremia; F17.210 Nicotine dependence, cigarettes, uncomplicated; Z79.4 Long term (current) use of insulin; E66.01 Morbid (severe) obesity due to excess calories; Z20.828 Contact with and (suspected) exposure to other viral communicable diseases; I10 Essential (primary) hypertension; E11.43 Type 2 diabetes mellitus with diabetic autonomic (poly)neuropathy; K31.84 Gastroparesis; E11.65 Type 2 diabetes mellitus with hyperglycemia
CPT/HCPCS: 12345; 36415; 36416; 36600; 51702; 71045; 74176; 80048; 80053; 81001; 82009; 82803; 82962; 83605; 83690; 83735; 84484; 85025; 87040; 87086; 87426; 87635; 87804; 93005; 93970; 96372; 96375; 99284; J1644; J1815; J2020; J2270; J2405; J2543; J3370; J3490; J7030; J7050; J7799

== ENCOUNTER 2020-02-20 06:00 | Outpatient (RCR) | payer MEDICARE, MEDICAID, SELFPAY | END 2020-03-21 23:59 | disposition home or self-care (01) | LOC: TPT 06:00 | PROVIDERS: Referring Provider Orthopaedic Surgery; Visit Provider Orthopaedic Surgery | DX: M75.02 Adhesive capsulitis of left shoulder (principal) | CPT/HCPCS: 97110; 97140 ==

== ENCOUNTER 2020-03-22 06:00 | Outpatient (RCR) | payer MEDICARE, MEDICAID, SELFPAY | END 2020-04-21 23:59 | disposition home or self-care (01) | LOC: TPT 06:00 | PROVIDERS: Referring Provider Orthopaedic Surgery; Visit Provider Orthopaedic Surgery | DX: M75.02 Adhesive capsulitis of left shoulder (principal) | CPT/HCPCS: 97110; 97140 ==

== ENCOUNTER 2020-04-22 06:00 | Outpatient (RCR) | payer MEDICARE, MEDICAID, SELFPAY | END 2020-05-19 23:59 | disposition home or self-care (01) | LOC: TPT 06:00 | PROVIDERS: Referring Provider Orthopaedic Surgery; Visit Provider Orthopaedic Surgery | DX: M75.02 Adhesive capsulitis of left shoulder (principal) | CPT/HCPCS: 80053; 83880; 85025; 97110; 97140 ==

== ENCOUNTER → 2020-05-07 07:31 | Outpatient (BNVA) | payer MEDICARE, MEDICAID, SELFPAY | PROVIDERS: Visit Provider Psychiatry & Neurology Psychiatry | DX: F20.89 Other schizophrenia (principal); F17.200 Nicotine dependence, unspecified, uncomplicated; F34.1 Dysthymic disorder; F51.5 Nightmare disorder | CPT/HCPCS: 99215 ==

== ENCOUNTER 2020-05-20 06:00 | Outpatient (RCR) | payer MEDICARE, MEDICAID, SELFPAY | END 2020-06-19 23:59 | disposition home or self-care (01) | LOC: TPT 06:00 | PROVIDERS: Referring Provider Orthopaedic Surgery; Visit Provider Orthopaedic Surgery | DX: M75.02 Adhesive capsulitis of left shoulder (principal) | CPT/HCPCS: 97110; 97140 ==

== ENCOUNTER → 2020-05-31 10:34 | Outpatient (BNVA) | payer MEDICARE, MEDICAID, SELFPAY | PROVIDERS: PCP Family Medicine; Referring Provider Family Medicine; Visit Provider Anesthesiology Pain Medicine | DX: M47.812 Spondylosis without myelopathy or radiculopathy, cervical region (principal); M47.819 Spondylosis without myelopathy or radiculopathy, site unspecified; F17.220 Nicotine dependence, chewing tobacco, uncomplicated; M47.814 Spondylosis without myelopathy or radiculopathy, thoracic region | CPT/HCPCS: 72050; 72072; 99204 ==

== ENCOUNTER 2020-05-31 12:54 | Outpatient (CLI) | payer MEDICARE, MEDICAID, SELFPAY ==
--- NOTE | 2020-05-31 13:04 | XR_ITS ---
WS: [id number] THORACIC SPINE TECHNIQUE: AP and lateral views are performed. HISTORY: M47.819 - Spondylosis without myelopathy or radiculopathy, site unspecified COMPARISON: None available. Mild straightening of the normal thoracic vertebrae. Posterior alignment is normal. Mild disc space n arrowing throughout with hypertrophic small endplate osteophytes. Pedicles are all identified. XR/XR thoracic spine 3V* [id number] IMPRESSION: Mild thoracic spondylosis.
--- NOTE | 2020-05-31 13:04 | XR_ITS ---
WS: [id number] CERVICAL SPINE 5 VIEWS HISTORY: M47.812 - Spondylosis without myelopathy or radiculopathy, cervical region COMPARISON: 01/02/2015 TECHNIQUE: AP, oblique and lateral radiographs. Straightening and reversal normal cervical lordosis centered at C5-6. Degenerative disc space narrowi ng is mild at C5-6 with an anterior bridging osteophyte. Similar to the prior study with very mild pr ogression of degenerative change. Foramina are widely patent. Lateral masses are aligned and the odon toid is intact. XR/XR cervical spine 4-5V [id number] IMPRESSION: 1. No acute cervical spine fracture. 2. Reversal normal cervical lordosis and focal kyphosis at C5-6. Mild progress ion since 01/02/2015.
== END 2020-05-31 12:55 | disposition home or self-care (01) ==
LOC: RADWPI 13:03
PROVIDERS: PCP Family Medicine; Visit Provider Anesthesiology Pain Medicine
DX: M47.812 Spondylosis without myelopathy or radiculopathy, cervical region (principal); M47.814 Spondylosis without myelopathy or radiculopathy, thoracic region
CPT/HCPCS: 72050; 72072

== ENCOUNTER → 2020-06-17 10:17 | Outpatient (BNVA) | payer MEDICARE, MEDICAID, SELFPAY | PROVIDERS: PCP Family Medicine; Visit Provider Anesthesiology Pain Medicine | DX: G89.29 Other chronic pain (principal); M54.2 Cervicalgia; F17.220 Nicotine dependence, chewing tobacco, uncomplicated | CPT/HCPCS: 99214 ==

== ENCOUNTER → 2020-06-18 07:32 | Outpatient (BNVA) | payer MEDICARE, MEDICAID, SELFPAY | PROVIDERS: PCP Family Medicine; Visit Provider Psychiatry & Neurology Psychiatry | DX: F20.89 Other schizophrenia (principal); F17.200 Nicotine dependence, unspecified, uncomplicated; F51.5 Nightmare disorder | CPT/HCPCS: 99214 ==

== ENCOUNTER 2020-06-20 06:00 | Outpatient (RCR) | payer MEDICARE, MEDICAID, SELFPAY | END 2020-06-26 23:00 | disposition home or self-care (01) | LOC: TPT 06:00 | PROVIDERS: PCP Family Medicine; Referring Provider Orthopaedic Surgery; Visit Provider Orthopaedic Surgery | DX: M75.02 Adhesive capsulitis of left shoulder (principal) | CPT/HCPCS: 97110; 97140 ==

== ENCOUNTER → 2020-07-22 07:47 | Outpatient (BNVA) | payer MEDICARE, MEDICAID, SELFPAY | PROVIDERS: PCP Family Medicine; Visit Provider Psychiatry & Neurology Psychiatry | DX: F20.89 Other schizophrenia (principal); F34.1 Dysthymic disorder; F51.5 Nightmare disorder | CPT/HCPCS: 99214 ==

== ENCOUNTER → 2020-08-08 13:13 | Outpatient (BNVA) | payer MEDICARE, MEDICAID, SELFPAY | PROVIDERS: PCP Family Medicine; Visit Provider Anesthesiology Pain Medicine | DX: G89.29 Other chronic pain (principal); M54.12 Radiculopathy, cervical region; M54.6 Pain in thoracic spine; F17.220 Nicotine dependence, chewing tobacco, uncomplicated | CPT/HCPCS: 99214 ==

== ENCOUNTER 2020-08-26 09:47 | Outpatient (CLI) | payer MEDICARE, MEDICAID, SELFPAY ==
--- NOTE | 2020-08-26 10:00 | CT_ITS ---
WS: [id number] CT CERVICAL SPINE TECHNIQUE: Noncontrast CT of the cervical spine with coronal and sagittal reformatted images. CLINICAL INFORMATION: M54.12 - Radiculopathy, cervical region COMPARISON: CT 4 2013 DLP: 2785.[address] scans at [facility] use at least one of these dose optimization techniques: automat ed exposure control; mA and/or kV adjustment per patient size (includes targeted exams where dose is matched to clinical indication); or iterative reconstruction. FINDINGS: Straightening of the normal cervical lordosis. Normal C1-2 articulation. Unfused T1 spinous process a pophysis or chronic ununited fracture unchanged from 2014. C2-C3: Normal. C3-C4: Normal. C4-C5: Mild osteophytic ridging. Mild facet arthropathy. Mild left bony foraminal narrowing. Spinal c anal is patent. C5-C6: Mild osteophytic ridging. Mild facet arthropathy. Mild left and no significant right foraminal narrowing. C6-C7: Mild disc osteophyte complex endplate ridging. Mild facet arthropathy. Spinal canal and forame n are patent. C7-T1: Mild left and no significant right foraminal narrowing. Mild bilateral T1-T2 bony foraminal narrowing left greater than right. Visualized posterior nasopharynx: Normal. Prevertebral soft tissues: Normal. CT/CT cervical spin wo con* [id number] IMPRESSION: 1. Straightening of the normal cervical lordosis. No high-grade central canal narrowing. 2. Mild left bony foraminal narrowing left C4-C5, left C5-C6, and left C7-T1 3. Mild bilateral T1-2 bony foraminal narrowing. 4. Mild facet arthropathy C4-C5, C5-C6,and C6-C7.
== END 2020-08-26 09:48 | disposition home or self-care (01) ==
LOC: RADWPI 09:53 → RAD 10:24
PROVIDERS: PCP Family Medicine; Visit Provider Anesthesiology Pain Medicine
DX: M54.12 Radiculopathy, cervical region (principal); M47.812 Spondylosis without myelopathy or radiculopathy, cervical region
CPT/HCPCS: 72125

== ENCOUNTER → 2020-09-05 13:23 | Outpatient (BNVA) | payer MEDICARE, MEDICAID, SELFPAY | PROVIDERS: PCP Family Medicine; Visit Provider Anesthesiology Pain Medicine | DX: G89.29 Other chronic pain (principal); M54.12 Radiculopathy, cervical region; F17.220 Nicotine dependence, chewing tobacco, uncomplicated | CPT/HCPCS: 99214 ==

== ENCOUNTER → 2020-09-16 14:51 | Outpatient (BNVA) | payer MEDICARE, MEDICAID, SELFPAY | PROVIDERS: PCP Family Medicine; Visit Provider Anesthesiology Pain Medicine | DX: Z01.812 Encounter for preprocedural laboratory examination (principal); E11.9 Type 2 diabetes mellitus without complications; G89.29 Other chronic pain; M54.2 Cervicalgia; F17.220 Nicotine dependence, chewing tobacco, uncomplicated | CPT/HCPCS: 62321; J1100 ==

== ENCOUNTER → 2020-09-25 07:31 | Outpatient (BNVA) | payer MEDICARE, MEDICAID, SELFPAY | PROVIDERS: PCP Family Medicine; Visit Provider Psychiatry & Neurology Psychiatry | DX: F20.89 Other schizophrenia (principal); F34.1 Dysthymic disorder; F51.5 Nightmare disorder; F17.200 Nicotine dependence, unspecified, uncomplicated | CPT/HCPCS: 99214 ==

== ENCOUNTER → 2020-09-27 11:54 | Outpatient (BNVA) | payer MEDICARE, MEDICAID, SELFPAY | PROVIDERS: PCP Family Medicine; Visit Provider Family Medicine | DX: E11.65 Type 2 diabetes mellitus with hyperglycemia (principal); K21.9 Gastro-esophageal reflux disease without esophagitis; R60.0 Localized edema; Z79.4 Long term (current) use of insulin; F41.9 Anxiety disorder, unspecified | CPT/HCPCS: 80053; 80061; 83036; 84443; 85025 ==

== ENCOUNTER → 2020-10-14 09:56 | Outpatient (BNVA) | payer MEDICARE, MEDICAID, SELFPAY | PROVIDERS: PCP Family Medicine; Visit Provider Family Medicine | DX: R79.89 Other specified abnormal findings of blood chemistry (principal); E11.9 Type 2 diabetes mellitus without complications | CPT/HCPCS: 84439; 84481 ==

== ENCOUNTER → 2020-10-17 11:01 | Outpatient (BNVA) | payer MEDICARE, MEDICAID, SELFPAY | PROVIDERS: PCP Family Medicine; Visit Provider Anesthesiology Pain Medicine | DX: G89.29 Other chronic pain (principal); M54.12 Radiculopathy, cervical region; M54.6 Pain in thoracic spine; F17.210 Nicotine dependence, cigarettes, uncomplicated | CPT/HCPCS: 99214 ==

== ENCOUNTER → 2020-11-14 09:49 | Outpatient (BNVA) | payer MEDICARE, MEDICAID, SELFPAY | PROVIDERS: PCP Family Medicine; Visit Provider Anesthesiology Pain Medicine | DX: G89.29 Other chronic pain (principal); M54.12 Radiculopathy, cervical region; M54.6 Pain in thoracic spine; F17.210 Nicotine dependence, cigarettes, uncomplicated | CPT/HCPCS: 99214 ==

== ENCOUNTER → 2020-11-20 15:03 | Outpatient (BNVA) | payer MEDICARE, MEDICAID, SELFPAY | PROVIDERS: PCP Family Medicine; Visit Provider Psychiatry & Neurology Psychiatry | DX: F34.1 Dysthymic disorder (principal); F20.89 Other schizophrenia; F51.5 Nightmare disorder; F41.9 Anxiety disorder, unspecified; F17.200 Nicotine dependence, unspecified, uncomplicated | CPT/HCPCS: 99214 ==

== ENCOUNTER → 2020-12-18 08:38 | Outpatient (BNVA) | payer MEDICARE, MEDICAID, SELFPAY | PROVIDERS: PCP Family Medicine; Visit Provider Anesthesiology Pain Medicine | DX: G89.29 Other chronic pain (principal); M54.12 Radiculopathy, cervical region; M54.6 Pain in thoracic spine; F17.220 Nicotine dependence, chewing tobacco, uncomplicated; M47.812 Spondylosis without myelopathy or radiculopathy, cervical region | CPT/HCPCS: 99214 ==

== ENCOUNTER → 2020-12-25 13:26 | Outpatient (BNVA) | payer MEDICARE, MEDICAID, SELFPAY | PROVIDERS: PCP Family Medicine; Visit Provider Anesthesiology Pain Medicine | DX: G89.29 Other chronic pain (principal); M47.22 Other spondylosis with radiculopathy, cervical region; F17.200 Nicotine dependence, unspecified, uncomplicated; M47.812 Spondylosis without myelopathy or radiculopathy, cervical region | CPT/HCPCS: 64490; 64491; 64492; J3490 ==

== ENCOUNTER → 2021-01-01 08:44 | Outpatient (BNVA) | payer MEDICARE, MEDICAID, SELFPAY | PROVIDERS: PCP Family Medicine; Referring Provider Family Medicine; Visit Provider Internal Medicine | DX: G89.29 Other chronic pain (principal); E11.65 Type 2 diabetes mellitus with hyperglycemia; E55.9 Vitamin D deficiency, unspecified; E16.2 Hypoglycemia, unspecified; E03.8 Other specified hypothyroidism; I73.9 Peripheral vascular disease, unspecified; M54.9 Dorsalgia, unspecified; Z79.4 Long term (current) use of insulin | CPT/HCPCS: 80061; 82306; 83036; 84439; 84443; 99204 ==

== ENCOUNTER 2021-01-01 10:28 | Outpatient (CLI) | payer MEDICARE, MEDICAID, SELFPAY ==
[2021-01-01 11:28] LABS: Estmated Average Glucose 258; Hemoglobin A1C 10.6 % (4.0-6.0)
[2021-01-01 12:05] LABS: 25 Hydroxy Vitamin D 25 ng/mL (30-100); Chol HDL Ratio 6.97 mg/dL (1.0-5.00); Cholesterol 209 mg/dL (0-200); HDL Cholesterol 30 mg/dL (60-100); LDL Cholesterol Calculated 131 mg/dL (50-129); LDL HDL Ratio 4.37 RATIO (0.00-3.22); Thyroid Stimulating Hormone 5.32 uIU/mL (0.27-4.20); Triglycerides 240 mg/dL (0-150)
[2021-01-01 12:54] LABS: Free T4 Free Thyroxine 0.86 ng/dL (0.82-1.77)
== END 2021-01-01 10:29 | disposition home or self-care (01) ==
LOC: LAB 10:31
PROVIDERS: PCP Family Medicine; Visit Provider Internal Medicine
DX: E11.65 Type 2 diabetes mellitus with hyperglycemia (principal); Z79.4 Long term (current) use of insulin
CPT/HCPCS: 80061; 82306; 83036; 84439; 84443

== ENCOUNTER → 2021-01-08 09:21 | Outpatient (BNVA) | payer MEDICARE, MEDICAID, SELFPAY | PROVIDERS: PCP Family Medicine; Visit Provider Anesthesiology Pain Medicine | DX: G89.29 Other chronic pain (principal); M54.12 Radiculopathy, cervical region; E11.65 Type 2 diabetes mellitus with hyperglycemia; E03.8 Other specified hypothyroidism; I73.9 Peripheral vascular disease, unspecified; F17.220 Nicotine dependence, chewing tobacco, uncomplicated; Z79.4 Long term (current) use of insulin | CPT/HCPCS: 99214 ==

== ENCOUNTER → 2021-01-23 12:52 | Outpatient (BNVA) | payer MEDICARE, MEDICAID, SELFPAY | PROVIDERS: PCP Family Medicine; Visit Provider Anesthesiology Pain Medicine | DX: Z01.812 Encounter for preprocedural laboratory examination (principal); E11.8 Type 2 diabetes mellitus with unspecified complications; M47.812 Spondylosis without myelopathy or radiculopathy, cervical region | CPT/HCPCS: 36416; 64633; 64634; 64636; 82962; J1030 ==

== ENCOUNTER → 2021-02-06 09:30 | Outpatient (BNVA) | payer MEDICARE, MEDICAID, SELFPAY | PROVIDERS: PCP Family Medicine; Visit Provider Anesthesiology Pain Medicine | DX: G89.29 Other chronic pain (principal); M54.12 Radiculopathy, cervical region; G43.909 Migraine, unspecified, not intractable, without status migrainosus; M54.6 Pain in thoracic spine; E11.65 Type 2 diabetes mellitus with hyperglycemia; Z79.4 Long term (current) use of insulin | CPT/HCPCS: 99214 ==

== ENCOUNTER → 2021-04-10 14:09 | Outpatient (BNVA) | payer MEDICARE, MEDICAID, SELFPAY | PROVIDERS: PCP Family Medicine; Visit Provider Internal Medicine | DX: E11.65 Type 2 diabetes mellitus with hyperglycemia (principal); I73.9 Peripheral vascular disease, unspecified; E03.8 Other specified hypothyroidism; Z79.4 Long term (current) use of insulin | CPT/HCPCS: 99214 ==

== ENCOUNTER → 2021-07-07 11:19 | Outpatient (BNVA) | payer MEDICARE, MEDICAID, SELFPAY | PROVIDERS: PCP Family Medicine; Visit Provider Family Medicine | DX: E11.9 Type 2 diabetes mellitus without complications (principal); I10 Essential (primary) hypertension; E03.8 Other specified hypothyroidism; Z79.4 Long term (current) use of insulin; R60.0 Localized edema; G43.009 Migraine without aura, not intractable, without status migrainosus; F41.9 Anxiety disorder, unspecified | CPT/HCPCS: 80053; 80061; 83036; 84439; 84443; 85025 ==

== ENCOUNTER → 2021-08-06 14:53 | Outpatient (BNVA) | payer MEDICARE, MEDICAID, SELFPAY | PROVIDERS: PCP Family Medicine; Visit Provider Internal Medicine | DX: E11.65 Type 2 diabetes mellitus with hyperglycemia (principal); E03.8 Other specified hypothyroidism; I73.9 Peripheral vascular disease, unspecified; E78.2 Mixed hyperlipidemia; Z79.4 Long term (current) use of insulin; F17.220 Nicotine dependence, chewing tobacco, uncomplicated | CPT/HCPCS: 99214 ==

== ENCOUNTER → 2021-08-27 10:39 | Outpatient (BNVA) | payer MEDICARE, MEDICAID, SELFPAY | PROVIDERS: PCP Family Medicine; Visit Provider Psychiatry & Neurology Psychiatry | DX: F34.1 Dysthymic disorder (principal); F41.9 Anxiety disorder, unspecified; F20.89 Other schizophrenia | CPT/HCPCS: 99214 ==

== ENCOUNTER → 2022-02-26 15:03 | Outpatient (BNVA) | payer MEDICARE, MEDICAID, OTHER, SELFPAY | PROVIDERS: PCP Family Medicine; Visit Provider Nurse Practitioner Family | DX: Z20.828 Contact with and (suspected) exposure to other viral communicable diseases (principal) | CPT/HCPCS: 87400 ==

== ENCOUNTER → 2022-05-28 15:42 | Outpatient (BNVA) | payer MEDICARE, MEDICAID, SELFPAY | PROVIDERS: PCP Family Medicine; Visit Provider Family Medicine | DX: E11.65 Type 2 diabetes mellitus with hyperglycemia (principal); Z79.4 Long term (current) use of insulin; E78.2 Mixed hyperlipidemia; E03.8 Other specified hypothyroidism | CPT/HCPCS: 80053; 80061; 83036; 84443; 85025 ==

== ENCOUNTER → 2022-07-03 16:06 | Outpatient (BNVA) | payer MEDICARE, MEDICAID, OTHER, SELFPAY | PROVIDERS: PCP Family Medicine; Visit Provider Psychiatry & Neurology Psychiatry | DX: Z79.899 Other long term (current) drug therapy (principal); F43.12 Post-traumatic stress disorder, chronic | CPT/HCPCS: 80335 ==

== ENCOUNTER → 2022-08-05 15:23 | Outpatient (BNVA) | payer MEDICARE, MEDICAID, SELFPAY | PROVIDERS: PCP Family Medicine; Visit Provider Family Medicine | DX: R05.9 Cough, unspecified (principal) | CPT/HCPCS: 71046 ==

== ENCOUNTER → 2022-09-28 15:12 | Outpatient (BNVA) | payer MEDICARE, MEDICAID, SELFPAY | PROVIDERS: PCP Family Medicine; Visit Provider Family Medicine | DX: M79.672 Pain in left foot (principal) | CPT/HCPCS: 73630 ==

== ENCOUNTER → 2022-10-02 14:39 | Outpatient (BNVA) | payer MEDICARE, MEDICAID, SELFPAY | PROVIDERS: PCP Family Medicine; Visit Provider Podiatrist Foot & Ankle Surgery | DX: S93.622A Sprain of tarsometatarsal ligament of left foot, initial encounter; F17.200 Nicotine dependence, unspecified, uncomplicated; E11.65 Type 2 diabetes mellitus with hyperglycemia; Z79.4 Long term (current) use of insulin; X58.XXXA Exposure to other specified factors, initial encounter | CPT/HCPCS: 99204 ==

== ENCOUNTER 2022-10-05 13:20 | Outpatient (CLI) | payer MEDICARE, MEDICAID, SELFPAY | END 2022-10-05 13:21 | disposition home or self-care (01) | LOC: SPT 13:20 | PROVIDERS: PCP Family Medicine; Visit Provider Podiatrist Foot & Ankle Surgery | DX: Z46.89 Encounter for fitting and adjustment of other specified devices (principal); M79.672 Pain in left foot | CPT/HCPCS: 97760; L4361 ==

== ENCOUNTER 2022-10-21 14:59 | Outpatient (CLI) | payer MEDICARE, MEDICAID, SELFPAY ==
--- NOTE | 2022-10-21 15:30 | CT_ITS ---
WS: [id number] CT LEFT FOOT, NONCONTRAST. HISTORY: S93.629A - Sprain of tarsometatarsal ligament of unspecif... Technique: All CT scans at [facility] use at least one of these dose optimization techniques: automated exposure control; mA and/or kV adjustment per patient size (includes targeted exams where dose is matched to clinical indication); or iterative reconstruction. DLP: 143.23 mGy.cm COMPARISON: None available. There is significant motion artifact limiting detail especially involving the distal metatarsal and t he toes. Normal ankle mortise. No fractures. No osteochondral lesions at the talar dome. Talar and calcaneal a lignment is normal. Enthesopathy at the Achilles tendon attachment. Tarsal bones appear normal. Motio n artifact begins to the metatarsals. There is no apparent widening along the Lisfranc ligament. Ther e are a few small densities which appear to be vascular in etiology and not avulsion fractures. Hammertoe deformities. No soft tissue masses are identified. CT/CT foot LT wo con* [id number] IMPRESSION: 1. No acute fractures are identified. 2. Quality of this examination is limited as there is significant motion artif act through the distal metatarsals and the phalanges. 3. Hammertoe deformities. 4. No widening of the Lisfranc ligament.
== END 2022-10-21 15:00 | disposition home or self-care (01) ==
PROVIDERS: PCP Family Medicine; Visit Provider Podiatrist Foot & Ankle Surgery
DX: S93.629A Sprain of tarsometatarsal ligament of unspecified foot, initial encounter (principal); X58.XXXA Exposure to other specified factors, initial encounter; M79.672 Pain in left foot; M20.42 Other hammer toe(s) (acquired), left foot
CPT/HCPCS: 73700

== ENCOUNTER 2022-11-30 06:00 | Outpatient (RCR) | payer MEDICARE, MEDICAID, SELFPAY | END 2022-12-19 23:59 | disposition home or self-care (01) | LOC: TPT 06:00 | PROVIDERS: PCP Family Medicine; Visit Provider Family Medicine | DX: M70.31 Other bursitis of elbow, right elbow (principal); M77.8 Other enthesopathies, not elsewhere classified | CPT/HCPCS: 97110; 97140; 97162 ==

== ENCOUNTER 2022-12-20 06:00 | Outpatient (RCR) | payer MEDICARE, MEDICAID, SELFPAY | END 2023-01-19 23:59 | disposition home or self-care (01) | LOC: TPT 06:00 | PROVIDERS: PCP Family Medicine; Visit Provider Family Medicine | DX: M70.31 Other bursitis of elbow, right elbow (principal); M77.8 Other enthesopathies, not elsewhere classified | CPT/HCPCS: 97110; 97140 ==

== ENCOUNTER 2023-01-20 06:00 | Outpatient (RCR) | payer MEDICARE, MEDICAID, SELFPAY | END 2023-02-18 23:59 | disposition home or self-care (01) | LOC: TPT 06:00 | PROVIDERS: PCP Family Medicine; Visit Provider Family Medicine | DX: M70.31 Other bursitis of elbow, right elbow (principal); M77.8 Other enthesopathies, not elsewhere classified | CPT/HCPCS: 97110; 97140 ==

== ENCOUNTER 2023-02-19 06:00 | Outpatient (RCR) | payer MEDICARE, MEDICAID, SELFPAY | END 2023-03-01 23:59 | disposition home or self-care (01) | LOC: TPT 06:00 | PROVIDERS: PCP Family Medicine; Visit Provider Family Medicine | DX: M77.8 Other enthesopathies, not elsewhere classified (principal); M70.31 Other bursitis of elbow, right elbow | CPT/HCPCS: 97110; 97140 ==

== ENCOUNTER → 2023-12-02 16:07 | Outpatient (BNVA) | payer MEDICARE, MEDICAID, OTHER, SELFPAY | PROVIDERS: PCP Family Medicine; Visit Provider Family Medicine | DX: Z12.5 Encounter for screening for malignant neoplasm of prostate (principal); Z79.4 Long term (current) use of insulin; E11.65 Type 2 diabetes mellitus with hyperglycemia; E78.2 Mixed hyperlipidemia; E03.8 Other specified hypothyroidism | CPT/HCPCS: 80053; 80061; 83036; 84443; 85025; G0103 ==

== ENCOUNTER → 2023-12-24 10:43 | Outpatient (BNVA) | payer MEDICARE, MEDICAID, OTHER, SELFPAY | PROVIDERS: PCP Family Medicine; Visit Provider Internal Medicine | DX: E11.65 Type 2 diabetes mellitus with hyperglycemia (principal); Z79.4 Long term (current) use of insulin; E78.2 Mixed hyperlipidemia; E03.8 Other specified hypothyroidism; I73.9 Peripheral vascular disease, unspecified; Z79.890 Hormone replacement therapy; Z79.84 Long term (current) use of oral hypoglycemic drugs | CPT/HCPCS: 99214 ==

== ENCOUNTER → 2024-06-27 12:03 | Outpatient (BNVA) | payer MEDICARE, MEDICAID, SELFPAY | PROVIDERS: PCP Nurse Practitioner Family; Visit Provider Nurse Practitioner Family | DX: M79.645 Pain in left finger(s) (principal); Z87.81 Personal history of (healed) traumatic fracture | CPT/HCPCS: 73130 ==

== ENCOUNTER → 2024-10-24 15:05 | Outpatient (BNVA) | payer MEDICARE, MEDICAID, SELFPAY | PROVIDERS: PCP Nurse Practitioner Family; Visit Provider Nurse Practitioner Family | DX: M79.606 Pain in leg, unspecified (principal); E55.9 Vitamin D deficiency, unspecified; E11.65 Type 2 diabetes mellitus with hyperglycemia; R60.0 Localized edema; Z79.4 Long term (current) use of insulin | CPT/HCPCS: 80053; 82306; 82607; 83036; 83735; 84443; 85025 ==

== ENCOUNTER 2024-11-06 15:02 | Outpatient (CLI) | payer MEDICARE, MEDICAID, SELFPAY ==
--- NOTE | 2024-11-06 14:30 | CT_ITS ---
WS: [id number] CT of the lumbar spine, additional two-dimensional coronal and sagittal imaging was obtained. 11/06/2024 Clinical Data: R20.0 - Anesthesia of skin Comparison: None. DLP: 2013.[address] scans at [facility] use at least one of these dose optimization techniques: automated exposure control; mA and/or kV adjustment per patient size (includes targeted exams where dose is matched to clinical indication); or iterative reconstruction. Findings: No compression fractures are seen. The disc heights are normal. There is a right L5-S1 spondylolysis with out spondylolisthesis. Minimal degenerative arthritis is present with lateral spurring. T12-L1: No canal stenosis, disc bulge or foraminal narrowing is seen. L1-L2: No canal stenosis, disc bulge or foraminal narrowing is seen. L2-L3: No canal stenosis, disc bulge or foraminal narrowing is seen. L3-L4: There is minimal central disc bulge. No disc extrusion is seen. L4-L5: There is minimal central disc bulge but no disc extrusion. L5-S1: There is a minimal central disc bulge but no disc extrusion. CT/CT lumbar spine wo con* [id number] Impression: 1. Minimal osteoarthritis of the lower lumbar vertebral bodies. 2. Disc bulging at lower disc levels L3-L4, L4-L5 and L5-S1.
== END 2024-11-06 15:03 | disposition home or self-care (01) ==
LOC: RAD 15:03
PROVIDERS: PCP Nurse Practitioner Family; Visit Provider Nurse Practitioner Family
DX: M51.369 Other intervertebral disc degeneration, lumbar region without mention of lumbar back pain or lower extremity pain (principal)
CPT/HCPCS: 72131